=== PATIENT | male | born 1995 | race Caucasian/White ===

== ENCOUNTER 2017-12-16 22:37 | Emergency (ER) | payer MEDICAID ==
[~2017-12-16] VITALS: Ht 170.2 cm; Wt 86.7 kg
[2017-12-17 00:05] VITALS: BP 166/105; Ht 170.2 cm; Wt 86.7 kg
== END 2017-12-17 01:44 | disposition left against medical advice (07) ==
LOC: ED 22:37
DX: Z53.21 Procedure and treatment not carried out due to patient leaving prior to being seen by health care provider (principal)

== ENCOUNTER 2018-01-05 13:21 | Emergency (ER) | payer MEDICAID ==
[~2018-01-05] VITALS: Ht 170.2 cm; Wt 87.1 kg
[2018-01-05 13:44] VITALS: BP 151/97; Ht 170.2 cm; Wt 87.1 kg
== END 2018-01-05 14:32 | disposition home or self-care (01) ==
LOC: ED 13:21
DX: N34.2 Other urethritis (principal)
CPT/HCPCS: 87491; 87591; J0696

== ENCOUNTER 2018-03-08 17:57 | Emergency (ER) | payer MEDICAID ==
[~2018-03-08] VITALS: Ht 170.2 cm; Wt 90.7 kg
[2018-03-08 18:14] VITALS: Ht 170.2 cm; Wt 90.7 kg
[2018-03-08 19:32] VITALS: BP 144/82
== END 2018-03-08 19:32 | disposition home or self-care (01) ==
LOC: ED 17:57
DX: N48.1 Balanitis (principal); I10 Essential (primary) hypertension

== ENCOUNTER 2018-07-07 13:00 | Emergency (ER) | payer MEDICAID ==
[~2018-07-07] VITALS: Ht 167.6 cm; Wt 94.8 kg
[2018-07-07 13:02] VITALS: BP 145/91; Ht 167.6 cm; Wt 94.8 kg
[2018-07-07 14:04] LABS: UA SPECIFIC GRAVITY 1.025 (1.005-1.035); microscopic required? YES; urine erythrocyte NEGATIVE (NEGATIVE)
== END 2018-07-07 14:09 | disposition home or self-care (01) ==
LOC: ED 13:00
PROVIDERS: Emergency Medicine
DX: N34.2 Other urethritis (principal); I10 Essential (primary) hypertension
CPT/HCPCS: 87491; 87591; J0696

== ENCOUNTER 2018-12-22 15:21 | Emergency (ER) | payer MEDICAID ==
[~2018-12-22] VITALS: Ht 170.2 cm; Wt 93.0 kg
[2018-12-22 16:00] VITALS: BP 145/94; Ht 170.2 cm; Wt 93.0 kg
== END 2018-12-22 18:17 | disposition home or self-care (01) ==
LOC: ED 15:21
DX: S63.91XA Sprain of unspecified part of right wrist and hand, initial encounter (principal); I10 Essential (primary) hypertension; X50.0XXA Overexertion from strenuous movement or load, initial encounter; Y93.89 Activity, other specified; Y92.89 Other specified places as the place of occurrence of the external cause; Y99.8 Other external cause status

== ENCOUNTER 2019-02-07 12:53 | Emergency (ER) | payer OTHER ==
[~2019-02-07] VITALS: Ht 170.2 cm; Wt 93.4 kg
[2019-02-07 12:59] VITALS: BP 151/115; Ht 170.2 cm; Wt 93.4 kg
== END 2019-02-07 14:34 | disposition home or self-care (01) ==
LOC: ED 12:53
DX: M65.4 Radial styloid tenosynovitis [de Quervain] (principal); I10 Essential (primary) hypertension

== ENCOUNTER 2020-04-07 10:57 | Emergency (ER) | payer MEDICAID ==
[~2020-04-07] VITALS: Ht 170.2 cm; Wt 97.5 kg
[2020-04-07 11:30] VITALS: BP 154/94; Ht 170.2 cm; Wt 97.5 kg
== END 2020-04-07 13:41 | disposition home or self-care (01) ==
LOC: ED 10:57
DX: S93.601A Unspecified sprain of right foot, initial encounter (principal); I10 Essential (primary) hypertension; V87.8XXA Person injured in other specified noncollision transport accidents involving motor vehicle (traffic), initial encounter; Y93.89 Activity, other specified; Y92.89 Other specified places as the place of occurrence of the external cause; Y99.8 Other external cause status
CPT/HCPCS: J1885

== ENCOUNTER 2020-06-11 18:36 | Emergency (ER) | payer MEDICAID ==
[~2020-06-11] VITALS: Ht 170.2 cm; Wt 91.2 kg
[2020-06-11 18:49] VITALS: Ht 170.2 cm; Wt 91.2 kg
== END 2020-06-11 20:10 | disposition home or self-care (01) ==
LOC: ED 18:36
DX: L03.011 Cellulitis of right finger (principal); I10 Essential (primary) hypertension; W22.8XXA Striking against or struck by other objects, initial encounter; Y93.89 Activity, other specified; Y92.89 Other specified places as the place of occurrence of the external cause; Y99.8 Other external cause status
CPT/HCPCS: 90715; J2001